=== PATIENT | male | born 1990 | race Caucasian/White ===

== ENCOUNTER 2016-12-17 20:47 | Inpatient (IN) | payer OTHER ==
[~2016-12-17] VITALS: Ht 181.6 cm; Wt 92.5 kg
[~2016-12-17 20:47] MED LIST: MOTRIN 600 MG600 MG PO
--- NOTE | 2016-12-17 20:52 | NUR ---
PT BIBA FROM HOME AFTER WRAPPING A USB CABLE AROUND HIS NECK IN A SUICIDE ATTEMPT. PER EMS, PT REPORTED HAVING SI THOUGHTS IN THE PAST, BUT THAT THIS IS HIS FIRST ATTEMPT AT HARMING HIMSELF. PT DENIES USING ETOH OR DRUGS TODAY. PER EMS, PT'S GIRLFRIEND BROKE UP WITH HIM A FEW DAYS AGO BECAUSE SHE WAS SEEING SOMEONE ELSE. PT CALM AND COOPERATIVE SECURITY AT BEDSIDE FOR WANFING
--- NOTE | 2016-12-17 21:33 | NUR ---
PT HAS 1 BELONGINGS BAG LOCKED IN CLOSET AND 1 VALUABLES BAG LOCKED IN MED ROOM SAFE.
--- NOTE | 2016-12-17 21:54 | NUR ---
blood drawn and sent to lab. lav,sst
[2016-12-17 21:59] LABS: ABSOLUTE BASOPHIL COUNT 0.1 /CUMM (0.0-0.2); ABSOLUTE EOSINOPHIL COUNT 0.1 /CUMM (0.0-0.7); ABSOLUTE LYMPH COUNT 2.3 /CUMM (1.2-3.4); ABSOLUTE MONOCYTE COUNT 0.8 /CUMM (0.10-0.60); BASOPHIL % 0.5 % (0.0-2.0); EOSINOPHIL % 0.5 % (0-5); GRANULOCYTE % 73.8 % (42.2-75.2); HEMATOCRIT 46.1 % (42-52); MEAN CORPUSCULAR HGB 29.6 PG (27.0-31.0); MEAN CORPUSCULAR HGB CONC 33.7 G/DL (33.0-37.0); MEAN CORPUSCULAR VOLUME 87.9 FL (80.0-94.0); MEAN PLATELET VOLUME 7.9 FL (7.4-10.4); PLATELET COUNT 376 /CUMM (130-400); RBC DISTRIBUTION WIDTH 13.2 % (11.5-14.5); RED BLOOD CELL CT 5.25 /CUMM (4.70-6.10); WHITE BLOOD CELL COUNT 12.2 /CUMM (4.8-10.8)
--- NOTE | 2016-12-17 22:16 | ED PSYCHIATRIC COMPLAINT ---
See Addendum History of Present Illness General Chief Complaint: Psychiatric Related Complaint Stated Complaint: BIBA SI ATTEMPT Source: patient Exam Limitations: no limitations Vital Signs & Intake/Output Vital Signs & Intake/Output Vital Signs Date Time Temp Pulse Resp B/P Pulse O2 O2 Flow FiO2 Ox Delivery Rate 12/18 1015 97.8 94 20 117/78 98 Room Air 12/18 0601 96.9 78 16 119/65 98 Room Air 12/17 2221 Room Air 12/17 2104 97.0 102 16 136/80 97 Room Air Allergies Coded Allergies: NO KNOWN ALLERGIES (05/25/15) Reconcile Medications No Known Home Medications Triage Note: PT BIBA AFTER WRAPPING A USB CABLE AROUND HIS NECK. PER EMS, PT HAS HAD SI THOUGHTS IN THE PAST BUT THIS WAS HIS FIRST ATTEMPT TO HARM SELF. PT DENIES ETOH/DRUG TODAY Triage Nurses Notes Reviewed? yes Onset: Abrupt Duration: day(s): Timing: recent history HPI: 26-year-old male comes into the emergency room for further evaluation after attempting to himself in his house. Patient reports that this last week has been very difficult for him. He reports that his fianc broke up with and he has found out that she is going out a lot talking to another time. He lives with his grandparents. He says he has social support. He denies any drug use but admits to some intermittent alcohol use. He's had some thoughts of hurting himself in the past but has never done anything. He reports that he saw his fianc today and when he got home the house was pitch black and he had have the thought that he wanted to hurt himself. (LAUREL WETZEL) Past History Travel History Traveled to [place] past 21 day No Medical History Any Pertinent Medical History? 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 No (LAUREL WETZEL) Review of Systems Review of Systems Constitutional: Reports: no symptoms. EENTM: Reports: no symptoms. Respiratory: Reports: no symptoms. Cardiovascular: Reports: no symptoms. GI: Reports: no symptoms. Genitourinary: Reports: no symptoms. Musculoskeletal: Reports: no symptoms. Skin: Reports: no symptoms. Neurological/Psychological: Reports: see HPI. Hematologic/Endocrine: Reports: no symptoms. Immunologic/Allergic: Reports: no symptoms. All Other Systems: Reviewed and Negative (LAUREL WETZEL) Physical Exam Physical Exam General Appearance: well developed/nourished, mild distress Head: atraumatic Eyes: Bilateral: normal appearance, EOMI. Ears, Nose, Throat: normal ENT inspection, hearing grossly normal Neck: normal inspection Respiratory: normal breath sounds, no respiratory distress Cardiovascular: regular rate/rhythm Extremities: normal range of motion Neurological/Psychiatric: awake, agitated Behavoir/Eye Contact/Speech: cooperative Thoughts/Hallucinations: no apparent hallucination Skin: intact, normal color, warm/dry SAD PERSONS SAD PERSONS Response Value Male Sex? yes 1 Depression/Hopelessness? yes 2 Rational Thinking Loss? yes 2 Single//? yes 1 Organized/Serious Attempt yes 2 Social Support? has support 0 Total 8 SAD PERSONS Done? yes (LAUREL WETZEL) Progress Differential Diagnosis: dementia, drug intoxication, drug overdose, drug withdrawal, electrolyte abnormality, encephalitis, hypoglycemia, hypothyroidism, IC hem/mass/tumor, meningitis, depression, bipolar, anxiety, Plan of Care: Orders Procedure Date/time Status Regular Diet 12/18 B Active Continuous Observation Monitor 12/18 0954 Active URINE DRUG SCREEN FOR ER ONLY 12/18 07 Complete Continuous Observation Monitor 12/18 2103 Active ETHANOL 12/18 2103 Complete COMPREHENSIVE METABOLIC PANEL 12/18 2103 Complete CBC WITHOUT DIFFERENTIAL 12/18 2103 Complete ED CRISIS PSYCH CONSULT 12/18 2103 Active Laboratory Tests 12/18/16 1010: Urine Opiates Screen < 100.00, Methadone Screen < 40, Barbiturate Screen < 60, Ur Phencyclidine Scrn < 6.00, Amphetamines Screen < 100, U Benzodiazepines Scrn < 85, Urine Cocaine Screen < 50, Urine Cannabis Screen 63.10 H 12/17/168: Anion Gap 14, Estimated GFR > 60, BUN/Creatinine Ratio 10.0, Glucose 100 H, Calcium 10.3 H, Total Bilirubin 1.1, AST 45, ALT 40, Alkaline Phosphatase 81, Total Protein 8.3 H, Albumin 5.0, Globulin 3.3, Albumin/Globulin Ratio 1.5, CBC w Diff NO MAN DIFF REQ, RBC 5.25, MCV 87.9, MCH 29.6, RDW 13.2, MPV 7.9, Gran % 73.8, Lymphocytes % 18.7 L, Monocytes % 6.5, Eosinophils % 0.5, Basophils % 0.5 , Absolute Granulocytes 9.0 H, Absolute Lymphocytes 2.3, Absolute Monocytes 0.8 H, Absolute Eosinophils 0.1, Absolute Basophils 0.1, PUBS MCHC 33.7, Serum Alcohol < 10.0 12/17/16 2104: Methadone Screen Cancelled, Barbiturate Screen Cancelled, Ur Phencyclidine Scrn Cancelled, Amphetamines Screen Cancelled, U Benzodiazepines Scrn Cancelled, Urine Cocaine Screen Cancelled, Urine Cannabis Screen Cancelled Hand-Off Endorsed To: BILLY STINSON MD Endorsed Time: 0024 Pending: consult (crisis), labs (LAUREL WETZEL) Hand-Off Endorsed To: ANTONETTE GARCÍA DO Endorsed Time: 0700 Pending: consult, labs (BILLY STINSON MD) Departure Departure Disposition: STILL A PATIENT Condition: Stable Clinical Impression Primary Impression: Depression Referrals: PATIENT HAS NO PRIMARY CARE DR (PCP/Family) Departure Forms: Customer Survey General Discharge Information Prescriptions: Current Visit Scripts No Known Home Medications (LAUREL WETZEL) Psych Admission Note Psychiatric Admission: I have seen and evaluated ANA ROSA SINGH. I have also reviewed all the pertinent lab results and diagnostic results. ANA ROSA SINGH will be admitted to our inpatient Psychiatric unit for treatment and care. 12/18/16 11:11 am The patient had been signed out to me by Dr. Stinson at 7 AM. He is being admitted to Inpatient Psychiatry. (ANTONETTE GARCÍA DO)
--- NOTE | 2016-12-17 22:20 | NUR ---
MICHAEL HUNTLEY AT BEDSIDE
--- NOTE | 2016-12-17 22:41 | NUR ---
PT HAS BEEN ATTEMPTING TO REACH HIS GRANDPARENTS, WITH WHOM HE LIVES, AT [phone], [place] [address]. THIS IS THEIR CELL HUNBER AND APPEARS TO BE SHUT OFF AT THIS TIME.
--- NOTE | 2016-12-18 00:48 | NUR ---
PT AWARE A URINE SAMPLE IS NEEDED. SITTER REMAINS IN ATTENDANCE
--- NOTE | 2016-12-18 02:44 | NUR ---
PT SLEEPING. REGULAR RESPIRATIONS NOTED. SITTER REMAINS IN ATTENDANCE
--- NOTE | 2016-12-18 03:34 | NUR ---
PATIENT CONTINUES TO SLEEP AT THIS TIME W/ REGULAR RESPIRATIONS NOTED. SITTER REMAINS W/ PATIENT.
--- NOTE | 2016-12-18 04:47 | NUR ---
PATIENT CONTINUES TO SLEEP AT THIS TIME W/ REGULAR RESPIRATIONS NOTED, SITTER REMAINS W/ PATIENT. LIGHTS DIMMED.
--- NOTE | 2016-12-18 06:28 | NUR ---
AWOKE PATIENT TO OBTAIN VS, VSS. PATIENT CALM AND COOPERATIVE, AWAITING CRISIS EVAL THIS AM. PATIENT AWARE OF URINE SPECIMEN ORDER, REPORTS "STILL CAN'T GO." SITTER REMAINS W/ PATIENT.
--- NOTE | 2016-12-18 07:30 | NUR ---
PT SLEEPING ON BED. RR WNL.
--- NOTE | 2016-12-18 09:41 | NUR ---
Crisis eval pending UDS results
--- NOTE | 2016-12-18 10:10 | NUR ---
AWAKE/AMBULATED TO BATHROOM. URINE TRIO SENT. PT STATES HE HAS TO GET TO WORK BY 1600. AWARE WE NEED TO WAIT FOR UDS RESULTS AND THEN WILL BE SEEN BY CRISIS AND POC WILL BE MADE. Informed waiting has been performed.
--- NOTE | 2016-12-18 10:30 | NUR ---
PT GIVEN PHONE TO CALL GRANDMOTHER, PHONE NOT WORKING ON GRANDMOTHER'S END.
--- NOTE | 2016-12-18 11:00 | NUR ---
GRANDMOTHER AT BEDSIDE.
--- NOTE | 2016-12-18 12:15 | NUR ---
GRANDPARENT'S CONTINUE TO ASK ABOUT WAIT TIME FOR CRISIS EVAL. THEY WERE ADVISED SEVERAL TIMES THAT PT DID NOT GIVE A URINE UNTIL THIS AM, SO PT'S EVAL WITH CRISIS WAS DELAYED DUE TO NOT HAVING A UDS RESULT UNTIL TODAY. Informed waiting has been performed.
--- NOTE | 2016-12-18 13:47 | NUR ---
CRISIS SPEAKING WITH PT'S GRANDPARENT'S.
--- NOTE | 2016-12-18 14:11 | ED PSY CRISIS COLLATERAL NOTE ---
Collateral Note Collateral Note Family/Inform/Kathryn Contacts: Maternal grandparents, Marialuisa and Lux Dagn interviewed 12/18/16 @ 3638. Marialuisa's phone, , not working; she needs to go to the phone store today to repair. Lux's phone, is working. Please notify admitting. Patient's mother had severe depression, and could not care for her children. The patient and 3 siblings were raised by these henri'parents; the patient was 9 y.o. at the time. History of cutting at 12-13 y.o., and treated at [facility] for anxiety and PTSD, related to being taken from his mother. Marialuisa reports that the patient was on a lot of different medications, but she is unsure what they were. She reports that he is not currently on psychiatric medications. The patient's father is still involved in the children's lives. The mother is doing better, depression is being treated and she is pursuing a nursing career; the patient is in touch with her. The patient had been living with his fiancee until 1-2 weeks ago, when he returned to the g'parent's home. He has been depressed and anxious over the break-up with the filucilae, thought to be a few days ago. Yesterday, 12/17/16, the leydaparents were not at home, but believe that the filucilae came over to visit the patient, and they went out. The g'parents think they were arguing. When the g'parents came home, the patient told them that the filucilae had called the police. The police arrived and the patient was sent to ED by EMS. The patient has a new job he was to start today at 1600 at [employer] in the [employer] department. G'parents report that the patient has always had difficulty getting up in the morning, and had arranged high school classes to start later in the day. He usually sleeps during the day and is up at night. G'parents deny observing racing thoughts, or the patient stating that he did not need to sleep. Family history: One sister had been diagnosed with bipolar d/o. Mother has depression. TONY Victor
--- NOTE | 2016-12-18 14:52 | ED PSYCH CRISIS CONSULTATION ---
Crisis Consult Basic Assessment Date of Consult: 12/18/16 Responsible Person/Accompanied By: self Insurance Authorization: Insurance #1: Insurance name: [employer] Phone number: Policy number: [id number] Group number: Authorization number: ED Provider: Patient's ED Provider: LAUREL WETZEL Primary Care Physician: Patient's PCP: PATIENT HAS NO PRIMARY CARE DR PCP's Phone Number: Current Psychiatrist: none Chief Complaint: Psychiatric Related Complaint Patient's Quote: "I tried to hang myself but the cord broke" Present Illness: Pt is a 26yo male who was brought in by ambulance after his ex-fiance called 911 when pt sent her a video of him hanging himself. Pt admits that he did hang himself, but the cord broke. Pt reports that his fiance broke up with his for someone else. Pt reports that he has been feeing depressed as a result and came home to a dark home and no one was home and he felt more lonely and depressed, so he tried to hang himself. Pt lives with his grandparents. They were present with pt in the ED. much of pt's hx was gathered from his grandparents as pt was agitated and uncooperative because he wanted to be discharged. "i need to go to work. I need to be discharged so i can go stay with my friends." Explained to pt that if the cord did not break, then he would not even be here today to go to work or be with his friends. The following was gathered from Pt's grandparents by Emanuel Marquez APRN: "Maternal grandparents, Marialuisa and Lux Dang interviewed 12/18/16 @ 1477. Marialuisa's phone, , not working; she needs to go to the phone store today to repair. Lux's phone, is working. Please notify admitting. Patient's mother had severe depression, and could not care for her children. The patient and 3 siblings were raised by these g'parents; the patient was 9 y.o. at the time. History of cutting at 12-13 y.o., and treated at [facility] for anxiety and PTSD, related to being taken from his mother. Marialuisa reports that the patient was on a lot of different medications, but she is unsure what they were. She reports that he is not currently on psychiatric medications. The patient's father is still involved in the children's lives. The mother is doing better, depression is being treated and she is pursuing a nursing career; the patient is in touch with her. The patient had been living with his fiancee until 1-2 weeks ago, when he returned to the g'parent's home. He has been depressed and anxious over the break-up with the filucilae, thought to be a few days ago. Yesterday, 12/17/16, the henri'parents were not at home, but believe that the fiancee came over to visit the patient, and they went out. The g'parents think they were arguing. When the g'parents came home, the patient told them that the fiancee had called the police. The police arrived and the patient was sent to ED by EMS. The patient has a new job he was to start today at 1600 at [employer] in the [employer] department. G'parents report that the patient has always had difficulty getting up in the morning, and had arranged high school classes to start later in the day. He usually sleeps during the day and is up at night. G'parents deny observing racing thoughts, or the patient stating that he did not need to sleep. Family history: One sister had been diagnosed with bipolar d/o. Mother has depression. TONY Victor" Case reviewed with Dr. Hui of Psychiatry and pt will be [facility] to [facility]. It was explained to pt the difference in signing in voluntarily versus PEC and pt opted to sign in voluntarily so that he can put in a 3 day paper request to discharge. Pt refused to sign the pt guidelines and he refused to participate in answering questions for diagnostic assessment and social. "I will do as little as possible." Patient's Address: [address] [place] [address] Other Phone Number: Who Do You Live With? Other (see notes) (grandparents) Family/Informants Interviewed: grandparents Allergies - Coded Allergies: NO KNOWN ALLERGIES (05/25/15) Current Medications - No Known Home Medications Laboratory Results: Laboratory Tests 12/18/16 1010: Urine Opiates Screen < 100.00, Methadone Screen < 40, Barbiturate Screen < 60, Ur Phencyclidine Scrn < 6.00, Amphetamines Screen < 100, U Benzodiazepines Scrn < 85, Urine Cocaine Screen < 50, Urine Cannabis Screen 63.10 H 12/17/168: Anion Gap 14, Estimated GFR > 60, BUN/Creatinine Ratio 10.0, Glucose 100 H, Calcium 10.3 H, Total Bilirubin 1.1, AST 45, ALT 40, Alkaline Phosphatase 81, Total Protein 8.3 H, Albumin 5.0, Globulin 3.3, Albumin/Globulin Ratio 1.5, CBC w Diff NO MAN DIFF REQ, RBC 5.25, MCV 87.9, MCH 29.6, RDW 13.2, MPV 7.9, Gran % 73.8, Lymphocytes % 18.7 L, Monocytes % 6.5, Eosinophils % 0.5, Basophils % 0.5 , Absolute Granulocytes 9.0 H, Absolute Lymphocytes 2.3, Absolute Monocytes 0.8 H, Absolute Eosinophils 0.1, Absolute Basophils 0.1, PUBS MCHC 33.7, Serum Alcohol < 10.0 12/17/162103: Methadone Screen Cancelled, Barbiturate Screen Cancelled, Ur Phencyclidine Scrn Cancelled, Amphetamines Screen Cancelled, U Benzodiazepines Scrn Cancelled, Urine Cocaine Screen Cancelled, Urine Cannabis Screen Cancelled Past History Past Medical History Neurological: NONE EENT: NONE Cardiovascular: NONE Respiratory: NONE Gastrointestinal: NONE Hepatic: NONE Renal: NONE Musculoskeletal: NONE Psychiatric: NONE Endocrine: NONE Blood Disorders: NONE Cancer(s): NONE 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 Past Surgical History Surgical History: non-contributory Psychosocial History Strengths/Capabilities: supportive grandparents Physical Limitations (Interventions): none reported Psychiatric Treatment History Psych Treatment Psychiatric Treatment Yes Inpatient Treatment Yes Outpatient Treatment Yes [place] Reason for Treatment PTSD Dates of Treatment age 15-14 Response to Treatment unknown Diagnosis by History: PTSD per grandparents Substance Use/Abuse History Drug Use/Abuse Substances Used/Abused Yes Substance Used/Abused Marijuana First Use unknown Last Used unknown How much used/taken unknown How often unknown For how long unknown Route of use unknown Substance Abuse Treatment Substance Abuse Treatment Past Substance Abuse [place] No Inpatient Treatment No Outpatient Treatment No Current Mental Status Mental Status Orientation: Person, Place, Situation Affect: Anxious, Angry, Depressed Speech: Evasive, Loud Neuro-vegetative: unable to assess Appearance Appearance- Dress/Hygiene: fairly groomed Behaviors Thought Process: Irrational Thought Content: Entitled, Grandiose Memory: WNL Insight: Poor SI/HI Risk Assessment Past Suicidal Ideation/Attempts No Current Suicidal Ideation/Att Yes Past Homicidal Ideation/Att: No Current Homicidal Ideation/Attempts No Degree of Intent: Made Preparations, Plan, States Intent, made attempt by hanging Danger To: Self Gravely Disabled: Lack of Insight, Poor Impulse Control, Poor Judgment Risk Factors: age (under 24/over 65), access to lethal means, high anxiety/ distress, history of suicide atmpts, SA/MH hospitalized, substance abuse, poor impulse control, lack of outcome concern, male, limited support Lethality Ratin (most severe) PTSD Checklist PTSD Done? pt unable to participate ED Management Sitter: Yes Restraints: No DSM5/PS Stressors/Medical Prob Diagnosis' (DSM 5, Stressors, Medical): Unspecified Depression F41.9, PTSD F43.10 (per GP by hx), Cannabis use d/o f12.20, Cluster B personality disorder traits Current GAF: 25 Departure Disposition Psych Medical Clearance Date: 12/18/16 Medically Cleared at: 1430 Time Started: 1430 Time Ended: 153 Psychiatrist Consulted: Ez Pennington Date Disposition Established: 12/18/16 Time Disposition Established: 1529 Plan for Disposition - Modality: Inpatient Psychiatry Facility: [facility] Rationale for Disposition: safety and stabilization following a suicide attempt Type of IP Admission: Voluntary Referrals PATIENT HAS NO PRIMARY CARE DR (PCP/Family)
--- NOTE | 2016-12-18 15:00 | NUR ---
PLAN IS FOR ADMISSION TO [facility]. Informed waiting has been performed.
--- NOTE | 2016-12-18 16:00 | NUR ---
AWAITING ADMISSION PROCESS Informed waiting has been performed.
--- NOTE | 2016-12-18 16:18 | IP CRISIS DIAG ASSESS PSYCH ---
Diagnostic Assessment Basic Assessment Insurance Authorization: Insurance #1: Insurance name: SANTIAGO Cadena [employer] Phone number: Policy number: [id number] Group number: Authorization number: [id number] Primary Care Physician: Patient's PCP: PATIENT HAS NO PRIMARY CARE DR PCP's Phone Number: Patient's Quote: "I tried to hang myself but the cord broke" Present Illness: Pt is a 26yo male who was brought in by ambulance after his ex-fiance called 911 when pt sent her a video of him hanging himself. Pt admits that he did hang himself, but the cord broke. Pt reports that his fiance broke up with his for someone else. Pt reports that he has been feeing depressed as a result and came home to a dark home and no one was home and he felt more lonely and depressed, so he tried to hang himself. Pt lives with his grandparents. They were present with pt in the ED. much of pt's hx was gathered from his grandparents as pt was agitated and uncooperative because he wanted to be discharged. "i need to go to work. I need to be discharged so i can go stay with my friends." Explained to pt that if the cord did not break, then he would not even be here today to go to work or be with his friends. The following was gathered from Pt's grandparents by Emanuel Marquez APRN: "Maternal grandparents, Marialuisa and Lux Dang interviewed 12/18/16 @ 7352. Marialuisa's phone, , not working; she needs to go to the phone store today to repair. Lux's phone, is working. Please notify admitting. Patient's mother had severe depression, and could not care for her children. The patient and 3 siblings were raised by these g'parents; the patient was 9 y.o. at the time. History of cutting at 12-15 y.o., and treated at [facility] for anxiety and PTSD, related to being taken from his mother. Marialuisa reports that the patient was on a lot of different medications, but she is unsure what they were. She reports that he is not currently on psychiatric medications. The patient's father is still involved in the children's lives. The mother is doing better, depression is being treated and she is pursuing a nursing career; the patient is in touch with her. The patient had been living with his fiancee until 1-2 weeks ago, when he returned to the g'parent's home. He has been depressed and anxious over the break-up with the filucilae, thought to be a few days ago. Yesterday, 12/17/16, the henri'parents were not at home, but believe that the fiancee came over to visit the patient, and they went out. The g'parents think they were arguing. When the g'parents came home, the patient told them that the fiancee had called the police. The police arrived and the patient was sent to ED by EMS. The patient has a new job he was to start today at 1600 at [employer] in the [employer] department. Henri'parents report that the patient has always had difficulty getting up in the morning, and had arranged high school classes to start later in the day. He usually sleeps during the day and is up at night. G'parents deny observing racing thoughts, or the patient stating that he did not need to sleep. Family history: One sister had been diagnosed with bipolar d/o. Mother has depression. TONY Victor" Case reviewed with Dr. Hui of Psychiatry and pt will be admitted to [facility]. It was explained to pt the difference in signing in voluntarily versus PEC and pt opted to sign in voluntarily so that he can put in a 3 day paper request to discharge. Pt refused to sign the pt guidelines and he refused to participate in answering questions for diagnostic assessment and social. "I will do as little as possible." Patient's Address: [address] [place] [address] Other Phone Number: Who Do You Live With? Other (see notes) (grandparents) Primary Language? Bulgarian Family/Informants Interviewed: grandparents Allergies - Coded Allergies: NO KNOWN ALLERGIES (05/25/15) Current Medications - No Known Home Medications Past History Abuse/Trauma History Trauma History/Current Trauma: unable to assess Psychosocial History Strengths/Capabilities: supportive grandparents Physical Limitations (Interventions): none reported Psychiatric Treatment History Psych Treatment Psychiatric Treatment Yes Inpatient Treatment Yes Outpatient Treatment Yes Location of Treatment [facility] Reason for Treatment PTSD Dates of Treatment age [age] Response to Treatment unknown Diagnosis by History: PTSD per grandparents Risk Factors: age (under 24/over 65), access to lethal means, high anxiety/ distress, history of suicide atmpts, SA/MH hospitalized, substance abuse, poor impulse control, lack of outcome concern, male, limited support Substance Use/Abuse History Drug Use/Abuse minimum 12mo Hx Substances Used/Abused Yes Substance Used/Abused Marijuana First Use unknown Last Used unknown How much used/taken unknown How often unknown For how long unknown Route of use unknown Substance Abuse Treatment Substance Abuse Treatment Past Substance Abuse [place] No Inpatient Treatment No Outpatient Treatment No Current Mental Status Mental Status Orientation: Person, Place, Situation Affect: Anxious, Angry, Depressed Speech: Evasive, Loud Neuro-vegetative: unable to assess Appearance Appearance- Dress/Hygiene: fairly groomed Behaviors Thought Process: Irrational Thought Content: Entitled, Grandiose Memory: WNL Insight: Poor SI/HI Risk Assessment - Minimum 6mo History- Past Suicidal Ideation/Attempts No Current Suicidal Ideation/Att Yes Past Homicidal Ideation/Att: No Current Homicidal Ideation/Attempts No Degree of Intent: Made Preparations, Plan, States Intent, made attempt by hanging Danger To: Self Gravely Disabled: Lack of Insight, Poor Impulse Control, Poor Judgment Risk Factors: age (under 24/over 65), access to lethal means, high anxiety/ distress, history of suicide atmpts, SA/MH hospitalized, substance abuse, poor impulse control, lack of outcome concern, male, limited support Lethality Ratin (most severe) Needs/Init TX Plan/Goals: safety and stabilization of sx, individual group and family therapy, med eval AUDIT-C Questionnaire: AUDIT-C Questionnaire: Response Value ETOH use in the past year Never 0 # drinks typical/day Doesn't Drink 0 6 or > drinks per occasion Never 0 Total 0 DSM5/PS Stressors/Medical Prob Diagnosis' (DSM 5, Stressors, Medical): Unspecified Depression F41.9, PTSD F43.10 (per GP by hx), Cannabis use d/o f12.20, Cluster B personality disorder traits Current GAF: 25
--- NOTE | 2016-12-18 16:18 | SOCIAL WORKER PROG NOTE PSYCH ---
Social Work Progress Note Progress Note Pt refused to perticipate in his social history.
--- NOTE | 2016-12-18 18:00 | NUR ---
AWAITING ADIMISSION PROCESS. Informed waiting has been performed.
--- NOTE | 2016-12-18 18:46 | NUR ---
REPORT GIVEN TO [facility]
--- NOTE | 2016-12-18 22:08 | NUR ---
Pt is out in the community pacing in the hallway after admission. Pt is compliant and cooperative with the staff, vital signs are stable appetite is good. Will continue to monitor the pt overnight.
--- NOTE | 2016-12-19 00:04 | NUR ---
PT ADMITTED TO [facility] FOR DEPRESSION WITH SI. PT REPORTED HE ATTEMPTED TO HANG HIMSELF AFTER HIS GIRFRIEND BROKE UP WITH HIM. HOWEVER, HE THINKS HE MAY HAVE REMOVED THE LIGATURE OR IT MAY HAVE BROKEN BEFORE HE ACTUALLY HARMED HIMSELF. PT DENIED SI/THOUGHTS OF SELF HARM DURING INTERVIEW. HE ALSO AGREED TO TELL STAFF IF THOUGHTS RETURN. PT REPORTED THAT EX GIRLFRIEND "HAS BEEN A BIG SUPPORT THROUGH ALL THIS AND SHE SAID SHE'LL TAKE ME TO MY THERAPY APPOINTMENTS WHEN I LEAVE HERE." PT REPORTED DEPRESSION "2" OUT OF 10 AND ANXIETY "4" OUT OF 10 WITH 10 BEING THE WORST. HE DENIED HI, PARANOID THOUGHTS, AND ALL HALLUCINATIONS. HE PRESENTED HIS THOUGHTS CLEARLY AND LOGICALLY. AFFECT CONSTRICTED. NO SOMATIC C/O. VITAL SIGNS STABLE. PT REPORTED HE HAS HISTORY OF DEPRESSION WITH SI AND ANXIETY WELL A DX OF BIPOLAR RECEIVED "IN MIDDLE SCHOOL OR EARLY HIGH SCHOOL." PT DENIED HISTORY OF SUICIDE ATTEMPT BEFORE THIS INCIDENT. HOWEVER, HE HAS HISTORY OF SELF HARM CUTTING BEHAVIOR.
--- NOTE | 2016-12-19 05:59 | NUR ---
SLEPT WELL OVERNIGHT , NO COMPLAINTS OFFERED
[2016-12-19 08:22] VITALS: BP 122/50
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
[2016-12-19 12:29] VITALS: BP 102/58
--- NOTE | 2016-12-19 12:30 | CPS MD/APRN INITIAL ASSE PSYCH ---
Psychiatric Admission Coffee Sommelier's Note Reviewed: Yes Patient Seen and Examined: Yes Identifying Information: Patient is a 26-year-old male. Chief Complaint: "I tried to hang myself but the cord broke" Reaction to Hospitalization: Calm and cooperative. History of Present Illness Onset of Illness: Pt reports that his fiance broke up with him for someone else. Pt reports that he has been feeling depressed as a result. He came home to a dark home, no one else was home, which made him feel lonely and depressed. He then tried to hang himself. Circumstances Leading to Admission: Brought in by ambulance after his ex-fiance called 911 when pt sent her a video of him trying to hang himself. Problem(s) Justifying Need for Admission: Suicidal attempt Past Psychiatric History Past Diagnosis(es)- if any: Anxiety, PTSD, history of cutting. Past Precipitating Factors- if any: Recent breakup with his fiance. - Include inpatient and outpatient treatment Treatment History: As per Crisis: "History of cutting at 12-15 y.o., and treated at [facility] for anxiety and PTSD, related to being taken from his mother. Grandmother reports that the patient was on a lot of different medications, but she is unsure what they were. She reports that he is not currently on psychiatric medications." History of Suicide Attempts or Gestures Denies prior episodes. Patient however reports intermittent suicidal ideation, at least since age 17. Substance Abuse History: Marijuana Allergies: Coded Allergies: NO KNOWN ALLERGIES (12/18/16) Home Med List: No home medications - Include any medical condition(s) that may - impact the patient's recovery/remission Past History Medical History Neurological: NONE EENT: NONE Cardiovascular: BENIGN HEART MURMUR Respiratory: NONE Gastrointestinal: NONE Hepatic: NONE Renal: NONE Musculoskeletal: NONE Psychiatric: anxiety, depression, insomnia, substance abuse Endocrine: NONE Blood Disorders: NONE Cancer(s): NONE IT SYSTEMS ANALYST/Reproductive: NONE History of MRSA: No History of VRE: No History of CDIFF: No Isolation History: Standard Surgical History Surgical History: non-contributory Psychiatric Family/Social Hx Family History Psychiatric Illness: Family history: One sister had been diagnosed with bipolar d/o. Mother has depression. Substance Use: Mother is in recovery. Suicides: Maternal uncle attempted suicide when he was younger. Social History Living Situation: Patient lives with his grandparents and 2 of his 3 sisters. Significant Relationships (family/friends): Grandmother, grandfather, and 3 sisters. Patient visits his mother from time to time. Education: High school graduate. Vocation/Occupation: He works in the [employer]. Legal: Denies Healthly Behaviors Screening Tobacco Screening Tobacco Use from ED Docu: Current Daily Use Daily Tobacco Use Amount/Type: =< 4 Cigarettes daily - If tobacco counseling indicated - the following topics are required. - #1 Recognizing dangerous situations. - #2 Coping Skills. - #3 Basic information about quitting. Status of Tobacco Cessation Counseling: #1, #2 AND #3 Completed Cessation Med Status: Nicotine Gum Ordered Alcohol Screening - ETOH screen POS if BAL >=80 or Audit-C>= M4/F3 Audit-C Score from Diag Assess: 0 Blood Alcohol Level: Laboratory Tests 12/18 2147 Toxicology Serum Alcohol (<10 MG/DL) < 10.0 Alcohol Use Screening Results: Neg per Audit C &/or BAL - If ETOH counseling indicated - the following topics are required. - #1 Express concern about the patient's - drinking at unhealthy levels, include informing - of national norms for moderate drinking: - men <= 14 drinks/week, max 4 drinks/occasion - women <= 7 drinks/week, max 3 drinks/occasion - #2 Providing feedback, including linking alcohol to - negative physical effects (liver injury, hypertension) - negative emotional effects (relationship problems and - depression) - negative occupational consequences (reduced work - performance) - #3 Advising the patient to abstain from alcohol or - to drink below national norms for moderate drinking - (as listed above). Status of ETOH Use Counseling: N/A B/C NO ETOH Use Metabolic Screening - Screen if on a Neuroleptic Medication - Metabolic screening should include: - Blood Pressure, BMI, Glucose or Hgb A1c, & a - Lipid profile from within the past 365 days. Metabolic Screening ([x]) Not Applicable, patient not on a neuroleptic. OR () Patient on a neuroleptic(s) . Enter below results for Glucose or Hemoglobin A1C, and lipid panel if obtained during the last 365 days. BMI: 28.000 Blood Pressure: 122/50 Laboratory Results (If applicable): labs ordered and pending. Exam and Plan Mental Status Examination Ambulation Status: Patient ambulates independently with steady gait. Appearance: Well dressed and groomed. Attitude towards examiner: Calm and cooperative, friendly. Psychomotor activity: Within normal limits Behavior: Calm and cooperative Quality of speech: Speech is well articulated, goal-directed, average in rate, volume and tone. Affect: Congruent Mood: Euthymic Suicidal Ideation: Denies Homicidal Ideation: Denies Hallucinations: Denies Paranoid/Delusional Material: Denies Difficulties with thought organization: No thought organization difficulties noted Insight: Fair Judgment: Poor Orientation: Alert and oriented to person, place, time and situation. Cognition: Within normal limits Memory Function: Within normal limits Estimate of intellectual functioning: Average Assets/Strengths Patient Identified Assets/Strengths: "I'm friendly. I care about people's feelings." Impression/Plan Impression and Plan: This is a 26-year-old pleasant and friendly young man. He admits to trying to kill himself by hanging, and sending his ex-fiance of video of the episode. He states this was an impulsive act, which he does not fully understand himself. States that as a 15-year-old he had been diagnosed with bipolar disorder, but has not taken medications in many years, and does not remember what medications he was prescribed at that time. States that he does not experience mood lability, and does not have manic episodes. Does say that he is at times talkative. Today reports that he feels well. Looking forward to family visiting today. Denies depression, and reports a very low level of anxiety. He said he sleeps well at night, without nightmares. For the last 2 weeks or so he has not had a good appetite. Plan: Continue Zoloft which was started on admission for depression and anxiety. - Include all active medical diagnosis that require tx DSM 5 Diagnosis(es): Unspecified Depression F41.9, PTSD F43.10 (per GP by hx). Rule out bipolar disorder. - Initial Tx Plan for Active Psych & Medical Conditions Treatment Plan: PLAN: The patient will be monitored on the unit for safety, depression, suicidal ideation, and mood lability. Additional information is needed from collaterals, including his grandparents and sisters. Anticipate once clinically stable, that the patient will be discharged to home and family and be referred to [facility]. - Factors that would help patient function - in a less restrictive setting. Factors: Resolution of suicidal ideation.
--- NOTE | 2016-12-19 13:20 | History & Physical ---
General Information and HPI MD Statement: I have seen and personally examined ANA ROSA SINGH and documented this H&P. The patient is a 26 year old M who presented with a patient stated chief complaint of "I tried to hang myself the cord broke". Source of Information: patient Exam Limitations: no limitations History of Present Illness: 26-year-old white male was brought in by ambulance after wrapping USB cable and his neck. EMS the seems to be the first attempt to harm himself didn't have any alcohol recently his ex-girlfriend called 911, he just broke up with her. Patient will be admitted for evaluation and treatment Allergies/Medications Allergies: Coded Allergies: NO KNOWN ALLERGIES (12/18/16) Home Med list No Known Home Medications Compliance With Home Meds: UNKNOWN Past History Travel History Traveled to [place] past 21 day No Medical History Neurological: NONE EENT: NONE Cardiovascular: BENIGN HEART MURMUR Respiratory: NONE Gastrointestinal: NONE Hepatic: NONE Renal: NONE Musculoskeletal: NONE Psychiatric: anxiety, depression, insomnia, substance abuse Endocrine: NONE Blood Disorders: NONE Cancer(s): NONE PLATE MILL MILL HAND/Reproductive: NONE History of MRSA: No History of VRE: No History of CDIFF: No Isolation History: Standard Surgical History Surgical History: non-contributory Past Family/Social History Psychosocial History Where do you live? Home ETOH Use: denies use Review of Systems Review of Systems Constitutional: Reports: see HPI. Exam & Diagnostic Data Last 24 Hrs of Vital Signs/I&O Vital Signs Date Time Temp Pulse Resp B/P Pulse O2 O2 Flow FiO2 Ox Delivery Rate 12/19 1229 98 102/58 12/19 0822 96.8 87 122/50 12/18 1850 97.9 91 20 119/73 98 Room Air 12/18 1523 97.8 103 20 134/83 98 Room Air Intake & Output 12/19 1600 12/19 0800 12/19 0000 Intake Total Output Total Balance Patient 204 lb Weight Physical Exam General Appearance Alert, Oriented X3, Cooperative, No Acute Distress Skin No Rashes, No Breakdown, No Significant Lesion HEENT Atraumatic, PERRLA, EOMI, Mucous Membr. moist/pink Neck Supple, No JVD, No thryomegaly, +2 Carotid Pulse wo Bruit Lymphatic Axillary nl, Cervical nl Cardiovascular Regular Rate, Normal S1, Normal S2, No Murmurs Lungs Clear to Auscultation, Normal Air Movement Abdomen Normal Bowel Sounds, Soft, No Tenderness, No Hepatospenomegaly, No Masses Neurological Exam Findings: Normal Gait, Normal Speech, Strength at 5/5 X4 Ext, Normal Tone, Sensation Intact, Cranial Nerves 3-12 NL, Reflexes 2+ Cranial Nerves II through XII: Intact Extremities No Cyanosis, No Edema, Normal Pulses Last 24 Hrs of Labs/Quan: Laboratory Tests 12/18/16 1010: Urine Opiates Screen < 100.00, Methadone Screen < 40, Barbiturate Screen < 60, Ur Phencyclidine Scrn < 6.00, Amphetamines Screen < 100, U Benzodiazepines Scrn < 85, Urine Cocaine Screen < 50, Urine Cannabis Screen 63.10 H 12/17/16 2148: Anion Gap 14, Estimated GFR > 60, BUN/Creatinine Ratio 10.0, Glucose 100 H, Calcium 10.3 H, Total Bilirubin 1.1, AST 45, ALT 40, Alkaline Phosphatase 81, Total Protein 8.3 H, Albumin 5.0, Globulin 3.3, Albumin/Globulin Ratio 1.5, CBC w Diff NO MAN DIFF REQ, RBC 5.25, MCV 87.9, MCH 29.6, RDW 13.2, MPV 7.9, Gran % 73.8, Lymphocytes % 18.7 L, Monocytes % 6.5, Eosinophils % 0.5, Basophils % 0.5 , Absolute Granulocytes 9.0 H, Absolute Lymphocytes 2.3, Absolute Monocytes 0.8 H, Absolute Eosinophils 0.1, Absolute Basophils 0.1, PUBS MCHC 33.7, Serum Alcohol < 10.0 12/17/164: Methadone Screen Cancelled, Barbiturate Screen Cancelled, Ur Phencyclidine Scrn Cancelled, Amphetamines Screen Cancelled, U Benzodiazepines Scrn Cancelled, Urine Cocaine Screen Cancelled, Urine Cannabis Screen Cancelled Diagnostic Data ITS Data Unobtainable at this time Assessment/Plan As Ranked By This Provider Problem List: 1. Depression Miscellaneous Miscellaneous Documentation Attending Case Discussed With: TRUNG GOMEZ MD Primary Care Physician: PATIENT HAS NO PRIMARY CARE DR Patient sees these Specialists Psychiatry Level of Patient Care: [facility] Consults Needed: Consulting Specialty: Psychiatry Consulting Physician: Juan Figueroa MD Reason for Consult: depression and suicidal attempt
--- NOTE | 2016-12-19 13:51 | SOCIAL WORKER PROG NOTE PSYCH ---
Social Work Progress Note Progress Note Pt was cooperative, anxious and wondering about being here and what the process is. Pt was forthcoming and insightful. He spoke about his childhood, and this recent break up. Pt "feels old" but is only 26, and has been though a lot. HIs is the oldest of 4 siblings and his parents have been in and out of his life due to drugs and shelter time. Pt reports he cant let go of relationship with ex.
--- NOTE | 2016-12-19 13:58 | NUR ---
PT REFUSED ALL GROUPS TODAY AND ISOLATED IN HIS ROOM WHEN HE WAS OOB HIS INTERACTIONS WITH STAFF AND PEERS WAS APPROPRIATE. PT DID C/O NAUSEA..NO VOMITING. HE DENIED ANY SUICIDAL THOUGHTS WHEN ASKED
[2016-12-19 16:01] VITALS: BP 115/67
[2016-12-19 20:02] VITALS: BP 122/71
--- NOTE | 2016-12-19 21:28 | NUR ---
PT IS CALM, COOPERATIVE WITH STAFF AND PEERS, AND COMPLAINT WITH UNIT RULES. PT IS OFTEN IN [place]IE[place], AND IS INTERACTING WELL WITH OTHERS. MOOD IS STABLE, AFFECT IS EUTHYMIC, COMMUNICATION IS ORGANIZED AND APPEARS NORMAL IN ALL RESPECTS, AND APPETITE IS NORMAL. PT DENIES SI AT THIS TIME.
--- NOTE | 2016-12-20 06:10 | NUR ---
PT APPEARED TO SLEEP.
--- NOTE | 2016-12-20 11:19 | SOCIAL WORKER PROG NOTE PSYCH ---
Social Work Progress Note Progress Note Tony presented as calm, but tired. Stated he slept good, but got up early for bloodwork and went back to bed. He was in group at 10:30 when I went to meet with him. He talked about the incident that led to his hospitalization stating he came home to a quiet, empty house, it was a long busy day and he impulsively felt the urge to hang himself. While in the process he had thoughts about not wanting to do it and so texted his ex-girlfriend Tiffani, who ultimately called 911. He seems to have little insight into what led up to this incident, other than saying that he was feeling stressed for a while and he tends to bottle things up. He has had fleeting thoughts of SI in the past, but no plan. Has a mild hx of self harm behavior, showed me a scar from a cut on his arm from in middle school. His girlfriend broke up with him a week- week 1/2 ago, but he remains in contact with her and states she is his "rock". He feels most comfortable taking to her. He is afraid of losing her. They were engaged and had been together for 1- half years. At that same time he and his grandparents (primary caregivers) left [place] and moved to [place]. He grew up in [place], so he feels that a peice of him was left behind. Since his move to [place] he states he has been bored. He has some friends in [place], but doesn't feel they are a good support. He does work at [employer] 20-30 hours week. He has informed them of his hospitalization. He is hoping to get back to work soon in fear of losing his job. He asked abouth his options to leave soon. I informed him of the paper to terminate voluntary status and that we have 72 business hours to decide whether to let him discharge or not. He decided that he did want to sign this paper. He is open to having a family meeting with his grandparents and his sisters tomorrow or Sunday. Called his grandmother and she will be here tomorrow with 2 of his sisters for 1pm.
--- NOTE | 2016-12-20 11:52 | SOCIAL WORKER TX PLAN PSYCH ---
Treatment Plan - Please Document: - Evidence that there is ongoing collaboration between - the patient and the interdisciplinary team, - including the patient's active participation and - responsibility for engaging in the treatment regimen, - and that the treatment plan is individualized and - relevant to the patient's conditions. - Treatment plan should reflect documentation indicating - that all active therapeutic efforts are included. Strengths/Capabilities: supportive grandparents Physical Limitations (Interventions): none reported DSM5/PS Stressors/Medical Prob Diagnosis' (DSM 5, Stressors, Medical): Unspecified Depression F41.9, PTSD F43.10 (per GP by hx), Cannabis use d/o f12.20, Cluster B personality disorder traits Current GAF: 25 Treatment Team - Responsibilities of members of the treatment team include: - Medication Management- MD or LIDAR SCIENTIST - Medication Administration and Monitoring- Nurse - Group Therapy- Occupational Therapist - 1:1 Therapy,Disch Planning,family involvement-Retread Technician
[2016-12-20 12:22] VITALS: BP 116/73
--- NOTE | 2016-12-20 13:32 | NUR ---
PT ISOLATED MUCH OF THE DAY. HE IS ENC TO ATTEND GROUPS.HE IS COMPLIANT WITH HIS MEDS AND WHEN ASKED PT DENIED ANY THOUGHTS OF SUICIDE OR SELF HARM
[2016-12-20 15:57] VITALS: BP 133/64
--- NOTE | 2016-12-20 18:45 | CP SOUTH PROGRESS NOTE PSYCH ---
Psych (Inpt) Progress Note Progress Note Progress Note: I discussed this patient's progress to date, current mental status, treatment process in the context of the treatment plan, and discharge planning with staff/ team in the daily morning inpatient team meeting. I also met with the patient myself in individual session. SUBJECTIVE: "I woke up pretty happy. I haven't felt any sadness." OBJECTIVE: Current Medications Sig/Amina Start time Last Medication Dose Route Stop Time Status Admin Acetaminophen 650 MG Q4P PRN 12/18 1845 AC PO Al Hydroxide/Mg 30 ML Q4-6 PRN PRN 12/18 184 AC Hydroxide PO Aripiprazole 5 MG 0800 12/20 1130 AC 12/20 PO 1216 Haloperidol 5 MG Q8P PRN 12/18 184 AC PO Lorazepam 1 MG Q6-PRN PRN 12/18 1830 AC 12/19 PO 2139 Magnesium Hydroxide 30 ML AT BEDTIME PRN 12/18 184 AC PO Nicotine 2 MG Q2 HRS NEEDED PRN 12/18 184 AC PO Sertraline HCl 50 MG DAILY 12/19 1000 AC 12/20 PO 1116 Laboratory Tests 12/20 0618 Chemistry Triglycerides (<150 mg/dL) 63 Cholesterol (< 200 MG/DL) 116 LDL Cholesterol, Calc (65 - 129 mg/dL) 67 HDL Cholesterol (40 - 60 mg/dL) 37 L Cholesterol/HDL Ratio (0.00 - 4.88 %) 3 Vital Signs Date Time Temp Pulse Resp B/P Pulse O2 O2 Flow FiO2 Ox Delivery Rate 12/20 1557 91 133/64 12/20 1222 76 116/73 12/19 2001 98.8 87 122/71 ASSESSMENT: This morning the patient presented as calm, cooperative, pleasant, in a euthymic mood. Offered no complaints. He appears to exhibit poor insight into his suicidal attempt, and to what may have motivated him to do such a thing. Later in the afternoon he returned to my office to request to be discharged today, stating that he had "things to do." We discussed the seriousness of his suicidal attempt, and suicidal ideation. We talked about future plans. Patient then verbalized willingness to remain in treatment here in the hospital. Patient has a three-day paper in place. Depression:0/10; Anxiety:1/10 (with 10 the worst.) Denies suicidal ideation, homicidal ideation, auditory hallucinations, visual hallucinations, paranoid ideation. Patient states and also believes that he will not kill himself. States that he slept well last night. Reports good appetite. Speech is well articulated, goal-directed, average in rate, volume and tone. Alert and oriented 3. Calm and cooperative. The patient understands the risks/benefits/side effects of the medication and is agreeable to continue taking them. PLAN: Add Abilify to augment the antidepressant, and for mood stability. I discussed with the patient the black box warning on Zoloft for adolescents and young adults. Patient verbalized understanding that Zoloft could cause suicidal ideation in some cases, and verbalized that should he have return of suicidal thoughts, he would immediately seek help, including from his sisters and grandparents. Continue with other current management as patient is improving. Continue to provide support and encouragement.
[2016-12-20 19:39] VITALS: BP 120/65
--- NOTE | 2016-12-20 20:46 | NUR ---
PT IS VISIBLE ON UNIT, VISITING WITH SISTERS AND GRANDPARENTS. NOT MUCH INTERACTION WITH OTHERS, MOSTLY RUMINATES AROUND UNIT TO PASS TIME. PLEASANT AND COOPERATIVE. NO COMPLAINTS OR SI REPORTED. PT HAS A STABLE MOOD AND FULL RANGE AFFECT.
--- NOTE | 2016-12-21 06:22 | NUR ---
PT APPEARED TO SLEEP.
[2016-12-21 07:50] VITALS: BP 109/56
[2016-12-21 12:07] VITALS: BP 118/58
--- NOTE | 2016-12-21 12:34 | CP SOUTH PROGRESS NOTE PSYCH ---
Psych (Inpt) Progress Note Progress Note Progress Note: I discussed this patient's progress to date, current mental status, treatment process in the context of the treatment plan, and discharge planning with staff/ team in the daily morning inpatient team meeting. I also met with the patient myself in individual session. SUBJECTIVE: "I'm just tired." OBJECTIVE: Current Medications Sig/Amina Start time Last Medication Dose Route Stop Time Status Admin Acetaminophen 650 MG Q4P PRN 12/18 1845 AC PO Al Hydroxide/Mg 30 ML Q4-6 PRN PRN 12/18 1845 AC Hydroxide PO Aripiprazole 5 MG 0800 12/20 1130 AC 12/21 PO 0757 Haloperidol 5 MG Q8P PRN 12/18 1845 AC PO Lorazepam 1 MG Q6-PRN PRN 12/18 1830 AC 12/19 PO 2139 Magnesium Hydroxide 30 ML AT BEDTIME PRN 12/18 1845 AC PO Nicotine 2 MG Q2 HRS NEEDED PRN 12/18 184 AC PO Sertraline HCl 50 MG DAILY 12/19 1000 AC 12/21 PO 0757 Vital Signs Date Time Temp Pulse Resp B/P Pulse O2 O2 Flow FiO2 Ox Delivery Rate 12/21 1207 86 118/58 / 0750 97.5 89 109/56 04/05 1939 97.7 93 120/65 04/05 1557 91 133/64 ASSESSMENT: I met the patient twice today, once in individual session, and then a second time in a family meeting along with his grandparents and sisters, and aids social worker Kim. Patient was found today at approximately 11:30 AM, asleep in bed. Easily aroused, ambulated with steady gait to my office. Alert and oriented 3. Patient was strongly encouraged to stay away from his bedroom, and participate in group and community activities. We discussed the disturbing nature of the patient's suicidal attempt, and I emphasized the importance of engaging in therapy. Patient verbalized understanding. I also met the patient in a family meeting along with aids social worker Kim, the patient, grandfather, grandmother, and 2 sisters. Family expressed support for the patient. States that although the patient had been sad after the breakup with his girlfriend, he had never before exhibited self harming behavior. Family encouraged the patient to engage in therapy, both in the hospital, and after discharge. Family members have been consistent visitors during visiting hours. Depression:0/10; Anxiety:0/10 (with 10 the worst.) Denies suicidal ideation, homicidal ideation, auditory hallucinations, visual hallucinations, paranoid ideation. Patient states and also believes that he will not kill himself. Speech is well articulated, goal-directed, average in rate, volume and tone. Calm and cooperative. Alert and oriented 3. Logical. Poor insight. The patient understands the risks/benefits/side effects of the medication and is agreeable to continue taking them. PLAN: Zoloft and Abilify times changed to bedtime, as the patient complains that medications have been making him tired during the day. Anticipate discharge at end of three-day paper on Sunday. Continue with current management as patient is improving. Continue to provide support and encouragement.
--- NOTE | 2016-12-21 14:07 | NUR ---
PT STATED HE SLEPT POORLY BECAUSE HE WAS HOT AND COLD. HE ISOLATED IN HIS ROOM AND ONLY ATTENDED ONE GROUP. PT DID STATE HE FELT THE MEDS WERE MAKING HIM TIRED. WHEN ASKED HE DENIED ANY THOUGHTS OF SUICIDE OR SELF HARM
[2016-12-21 15:35] VITALS: BP 146/73
--- NOTE | 2016-12-21 16:36 | SOCIAL WORKER PROG NOTE PSYCH ---
Social Work Progress Note Progress Note Family meeting held today with Grandparents and 2 sisters Karely and Lisa. Family appeared supportive and concerned over the break up with his girlfriend and how he is dealing with the loss. He seems to feel he will be ok. Family did not express any safety concerns prior to this event and didn't really see any red flags, although inidicated that it was nice to see him smiling because he hadn't been smiling much. Family is supportive in him going to [facility] for aftercare treatment and offered to help with transportation. Talked about the importance of engaging in therapy here and not staying in his room sleeping. Tony's biggest complaint has been about how tired he is. He has been difficult to get out of bed. Tony did play a game with another peer today and has made an attempt to stay out of his bed. Talked about discharge for Sunday. Intake has been scheduled for Sunday at 12:45 at [facility].
[2016-12-21 19:39] VITALS: BP 134/76
--- NOTE | 2016-12-21 22:02 | NUR ---
PT IS VISIBLE ON UNIT, SOCIAL WITH PEERS AND WATCHING TV IN KITCHEN. ATTENDED WRAP UP MEETING. COOPERATIVE AND COMPLIANT. NO COMPLAINTS OR SI REPORTED. PT HAS A STABLE MOOD AND FULL RANGE AFFECT.
[2016-12-22 07:58] VITALS: BP 107/66
[2016-12-22 12:09] VITALS: BP 126/63
--- NOTE | 2016-12-22 13:16 | NUR ---
PT IS COMPLIANT AND COOPERATIVE. MOOD IS STABLE WITH A FLAT AFFECT. PT DENIES SI AT THIS TIME, C/O HEADACHE. PT HAS BEEN MOSTLY WITHDRAWN AND ISOLATIVE IN BED. PT PRESENT IN COMMUNITY MORE DURING AFTERNOON HOURS- INTERACTING WITH PEERS. PT HAS ATTENDED A COUPLE GROUPS. VITALS ARE STABLE, APPETITE IS GOOD.
--- NOTE | 2016-12-22 13:41 | SOCIAL WORKER PROG NOTE PSYCH ---
Social Work Progress Note Progress Note Tony was sitting in the [facility]. He said he was doing okay, but continues to complain of being tired. It was around 11am and he had just woken up. I asked what time he normally gets up at home? He said 11am. I reminded him that IOP will be at 10am, so it would be good for him to start getting in a routine of getting up earlier and setting an alarm. Asked how his evening was? He said it was ok, but he didn't get much sleep. He said he tossed and turned alot and was probably just uncomfortable. I asked if he had any thoughts about the family meeting yesterday? He said no. He did say that his older sister was upset about him being here and that hurts him. He denied any depression today or suicidal thoughts. I informed him of his intake for Sunday at 12:45pm at [facility] and that his family can pick him up for 1:30pm. He said he would let them know when they visit today.
--- NOTE | 2016-12-22 14:09 | CP SOUTH PROGRESS NOTE PSYCH ---
Psych (Inpt) Progress Note Progress Note Progress Note: I discussed this patient's progress to date, current mental status, treatment process in the context of the treatment plan, and discharge planning with staff/ team in the daily morning inpatient team meeting. I also met with the patient myself in individual session. SUBJECTIVE: "I feel happy. I love walking around." OBJECTIVE: Current Medications Sig/Amina Start time Last Medication Dose Route Stop Time Status Admin Acetaminophen 650 MG Q4P PRN 12/18 184 AC PO Al Hydroxide/Mg 30 ML Q4-6 PRN PRN 12/18 184 AC Hydroxide PO Aripiprazole 5 MG AT BEDTIME 12/21 2200 AC / PO 2141 Magnesium Hydroxide 30 ML AT BEDTIME PRN 12/18 184 AC PO Nicotine 2 MG Q2 HRS NEEDED PRN 12/18 184 AC PO Sertraline HCl 50 MG AT BEDTIME 12/21 2200 AC / PO 2141 Vital Signs Date Time Temp Pulse Resp B/P Pulse O2 O2 Flow FiO2 Ox Delivery Rate 12/22 1209 74 126/63 12/22 0758 97.8 88 107/66 12/21 1939 99.3 74 134/76 12/21 1535 77 146/73 ASSESSMENT: Patient offers no complaints today, tolerating his medications well. Presents in a euthymic mood. States that changing his medication to bedtime dosing has been helpful, does not feel overly sedated during the day today. Reports some difficulty sleeping last night, states he believes that is because the bed is not very comfortable. Nevertheless, states that he got a decent night sleep. Patient has been participating in the community today, attending some groups this morning. Patient states that he has had the opportunity to speak with some of his peers on the unit. States that one patient told him a very moving story about his life. Patient was prompted to speak about some of his emotions, which he says he really hasn't spoken to anyone about before. States that as a child, in response to emotional turmoil in his family, he learned not to respond to his emotions. Depression:0/10; Anxiety:0/10 (with 10 the worst.) Denies suicidal ideation, homicidal ideation, auditory hallucinations, visual hallucinations, paranoid ideation. Speech is well articulated, goal-directed, average in rate, volume and tone. Calm, cooperative and pleasant. The patient understands the risks/benefits/side effects of the medication and is agreeable to continue taking them. PLAN: Continue with current management as patient is improving. Continue to provide support and encouragement.
[2016-12-22 16:17] VITALS: BP 146/74
[2016-12-22 19:52] VITALS: BP 134/74
--- NOTE | 2016-12-22 21:42 | NUR ---
PT IS CALM, COOPERATIVE WITH STAFF AND PEERS, AND COMPLIANT WITH UNIT RULES. PT IS OFTEN IN MILIEU, SLIGHTLY WITHDRAWN AT TIMES, BUT INTERACTING WELL WITH OTHERS. MOOD IS STABLE, AFFECTB IS EUTHYMCI TO FULL RNAGE, COMMUNICATION IS ORGANIZED AND APPEARS NORMAL IN ALL RESPECTS, AND APPETITE IS NORMAL. PT DENIES SI AT THIS TIME.
--- NOTE | 2016-12-23 06:41 | NUR ---
PATIENT SLEPT ALL NIGHT.
[2016-12-23 08:40] VITALS: BP 114/72
[2016-12-23 12:30] VITALS: BP 112/61
--- NOTE | 2016-12-23 13:25 | NUR ---
PT IS COMPLIANT AND COOPERATIVE. MOOD IS STABLE WITH A CONSTRICTED AFFECT. PT DENIES SI AT THIS TIME, PT C/O FEELING OVERLY TIRED- HAD DIFFICULTY SLEEPING D/T ROOMMATE BEING ON 1:1 OBSERVATION. PT HAS BEEN PRESENT ON THE UNIT AND INTERACTING WT PEERS AND STAFF. PT IS ATTENDING GROUPS. VITALS ARE STABLE, APPETITE IS GOOD.
[2016-12-23 15:52] VITALS: BP 141/73
--- NOTE | 2016-12-23 17:09 | CP SOUTH PROGRESS NOTE PSYCH ---
Psych (Inpt) Progress Note Progress Note Include the following elements, when applicable: Involvement in the active treatment of the patient with behavioral observations of the patient and the patient's response to the treatment. Review of the ongoing treatment process in the context of the treatment plan. Indication of how multi-disciplinary staff members are carrying out the treatment plan. Plans for future interventions and recommendations for revision of the treatment plan. Liaison with other physicians/providers. Progress Note: Chart reviewed, patient discussed with nursing staff. Interviewed patient this afternoon. Reports his mood is improving, denies any medication side effects denies suicidal or homicidal ideation. No other complaints today. Vital signs reviewed and within normal limits. No new laboratory results. Mental status exam: Well appearing man dressed casually with good grooming. Good eye contact. Speech was within normal limits. Mood was "getting better ", affect was euthymic, non-labile, congruent. Thought process was logical and linear thought content was within normal limits. He denies suicidal or homicidal ideation. He denies perceptual disturbance. Cognition was grossly intact. Insight and judgment was fair. A/P: Continue present management as per primary team.
[2016-12-23 20:16] VITALS: BP 144/72
--- NOTE | 2016-12-23 21:47 | NUR ---
PT IS CALM, COOPERATIVE WITH STAFF AND PEERS, AND COMPLIANT WITH UNIT RULES. PT IS OFTEN IN MILIEU AND INTERACTING WELL WITH OTHERS. MOOD IS STABLE, AFFECT APPEARS EUTHYMIC TO FULL RANGE, COMMUNICATION IS ORGANIZED AND APPEARS NORMLA IN ALL RESPECTS, AND APPETITE IS NORMAL. PT DENIES SI AT THSI TIME.
--- NOTE | 2016-12-24 05:14 | NUR ---
PT APPEARED TO SLEEP THRU THE NIGHT.
[2016-12-24 08:12] VITALS: BP 110/61
--- NOTE | 2016-12-24 10:35 | CP SOUTH PROGRESS NOTE PSYCH ---
Psych (Inpt) Progress Note Progress Note Include the following elements, when applicable: Involvement in the active treatment of the patient with behavioral observations of the patient and the patient's response to the treatment. Review of the ongoing treatment process in the context of the treatment plan. Indication of how multi-disciplinary staff members are carrying out the treatment plan. Plans for future interventions and recommendations for revision of the treatment plan. Liaison with other physicians/providers. Progress Note: Chart reviewed, patient discussed with nursing staff. Interviewed patient this am. Reports his mood continues to improve. Asks about the side effects of zoloft and abilify and was counseled on these. Denies any medication side effects denies suicidal or homicidal ideation. No other complaints today. Vital signs reviewed and within normal limits. No new laboratory results. Mental status exam: Well appearing man dressed casually with good grooming. Good eye contact. Speech was within normal limits. Mood was "ok", affect was euthymic, non-labile, congruent. Thought process was logical and linear thought content was within normal limits. He denies suicidal or homicidal ideation. He denies perceptual disturbance. Cognition was grossly intact. Insight and judgment was fair. A/P: Continue present management as per primary team.
--- NOTE | 2016-12-24 11:32 | NUR ---
PT IS CALM, COOPERATIVE, PLEASANT, SOCIAL AND APPROPRIATE WITH PEERS AND STAFF, HAS OFFERED NO ISSUES THUS FAR AND IS COMPLIANT WITH MEDICATIONS AND TREATMENTS, REPORTED IN GROUP TODAY + MOOD, SLEEP, APPETITE, FEELING MORE "COMFORTABLE" ON THE UNIT, MOOD STABLE WITH FULL RANGE AFFECT.
[2016-12-24 12:03] VITALS: BP 134/69
[2016-12-24 16:37] VITALS: BP 133/74
[2016-12-24 20:10] VITALS: BP 151/73
--- NOTE | 2016-12-24 22:46 | NUR ---
PT IS CALM, COOPERATIVE WITH STAFF AND PEERS, AND COMPLIANT WITH UNIT RULES. PT IS OFTEN IN [place], INTERACTING WELL WITH PEERS. MOOD IS STABLE, AFFECT IS EUTHYMIC TO FULL RANGE, COMMUNICATION IS ORGANIZED AND APPEARS NORMAL IN ALL RESPECTS, AND APPETITE IS NORMAL. PT DENIES SI AT THIS TIME.
--- NOTE | 2016-12-25 06:19 | NUR ---
PT APPEARED TO SLEEP WELL.
[2016-12-25 07:59] VITALS: BP 135/74
--- NOTE | 2016-12-25 10:23 | CP SOUTH PROGRESS NOTE PSYCH ---
Psych (Inpt) Progress Note Progress Note Include the following elements, when applicable: Involvement in the active treatment of the patient with behavioral observations of the patient and the patient's response to the treatment. Review of the ongoing treatment process in the context of the treatment plan. Indication of how multi-disciplinary staff members are carrying out the treatment plan. Plans for future interventions and recommendations for revision of the treatment plan. Liaison with other physicians/providers. Progress Note: [I discussed this patient's progress to date, current mental status, treatment process in the context of the treatment plan, and discharge planning with staff/ team in the daily morning inpatient team meeting. I also met with the patient myself in individual session.] S: "I feel a lot better." O: Current Medications Sig/Amina Start time Last Medication Dose Route Stop Time Status Admin Acetaminophen 650 MG Q4P PRN 12/18 1845 AC PO Al Hydroxide/Mg 30 ML Q4-6 PRN PRN 12/18 1845 AC Hydroxide PO Aripiprazole 5 MG AT BEDTIME 12/21 2200 AC 12/24 PO 2121 Diphenhydramine HCl 50 MG .STK-MED ONE 12/24 2117 DC PO 12/24 2118 Diphenhydramine HCl 50 MG AT BEDTIME PRN 12/23 1430 AC / PO 2123 Magnesium Hydroxide 30 ML AT BEDTIME PRN 12/18 1845 AC PO Nicotine 2 MG Q2 HRS NEEDED PRN 12/18 1845 AC PO Sertraline HCl 50 MG AT BEDTIME 12/21 2200 AC / PO 2121 Vital Signs Date Time Temp Pulse Resp B/P Pulse O2 O2 Flow FiO2 Ox Delivery Rate 12/25 0759 97.0 87 135/74 12/24 2009 99.4 90 151/73 12/24 1637 73 133/74 12/24 1203 78 134/69 A: Chart, progress notes, VS, labs and medication lists were reviewed. Vital signs were within normal limits. There were no new labs today. Today, I met with the patient for the first time on [facility] (covering for Sanchez Mcmanus APRN). Met with the patient today on the date of discharge. He was alert and oriented to person, place, time and situation. Affect was calm and constricted. Mood was "I feel a lot better." Eye contact was appropriate. Speech was normal in rate, tone and volume. He denied feeling hopeless, helpless, worthless and guilty. He denied auditory and visual hallucinations. Denied racing thoughts. Thought process was organized and goal-directed. There was no evidence of paranoia or allen delusions. Thought content was appropriate. Cognition was grossly intact. He reported anxiety of 1/10 (10 being the worst) and depression of 0/10 (10 being the worst). He reported protective factors of his family and job. He denied passive and active suicidal ideation, plans and intent. He denied homicidal ideation, plans and intent. He stated and also believed he will not harm himself or others. He reported his sleep and appetite were good. He appeared open to following up with [facility] level of care post-discharge, and appeared motivated to attend intake at 12:45PM, today. He also expressed motivation to resume his job at [employer]. The patient reported tolerating all medications well and denied untoward medication effects. He reported feeling safe and ready for discharge. P: 1. Discharge today into the care of family. 2. F/u with [facility] intake today at 12:45PM. 3. Patient was strongly advised to abstain from cannabis use. 4. All discharge medications were called into [facility] [place] today. 5. In the event of an emergency, call 911/ go to nearest emergency department. Patient verbalized understanding of instructions.
--- NOTE | 2016-12-25 10:40 | DISCHARGE SUMMARY REPORT-PSYCH ---
Visit Information Visit Dates/Diagnosis' Admission Date: 12/18/16 Discharge Date: 12/25/16 Reason for Admission: Patient was brought to emergency department by ambulance after his ex-fiance called 911 when patient sent her a video of him trying to hang himself. Psy Discharge Primary Diag: Unspecified Depressive Disorder Psy Discharge Secondary Diag: PTSD; R/O Unspecified Bipolar Disorder; Cannabis use disorder. Hospital Course Significant Lab Findings: Lab Urine Cannabis Screen 63.10 NG/ML H 12/18/16 1010 Course Complications: None. Consultations: The patient was seen for admission history and physical by structural metal fabricator apprentice Dr. Asim Nelson. Please see his note for additional information. Allergies: Coded Allergies: NO KNOWN ALLERGIES (12/18/16) Hospital Course/TX Response: The patient was monitored on the unit for safety, suicidal ideation and mood. He participated in multimodal treatments on the unit. He was started on Zoloft 50mg every morning for symptoms of depression and anxiety, which was later rescheduled to bedtime given reports of daytime tiredness. Abilify 5mg was further started at bedtime as an antidepressant adjunct and for mood stabilization. The patient reported tolerating all medications well and denied untoward medication effects. During the hospital course, the patient's mood and affect improved. Suicidal ideation remitted. A family meeting was held with the patient, his grandmother and grandfather, his two sisters, Lalita Myers CHAS, and Sanchez Mcmanus APRN. The patient's treatment progress, level of safety and discharge planning were reviewed and discussed. The patient's family was very supportive during this meeting and were in favor, as was the patient for him to engage in [facility] post- discharge for ongoing psychiatric treatment. On the date of discharge, 12/25/16, I met with the patient for the first time on [facility] (covering for Sanchez Mcmanus APRN). He was alert and oriented to person, place, time and situation. Affect was calm and constricted. Mood was "I feel a lot better." Eye contact was appropriate. Speech was normal in rate, tone and volume. He denied feeling hopeless, helpless, worthless and guilty. He denied auditory and visual hallucinations. Denied racing thoughts. Thought process was organized and goal-directed. There was no evidence of paranoia or allen delusions. Thought content was appropriate. Cognition was grossly intact. He reported anxiety of 1/10 (10 being the worst) and depression of 0/10 (10 being the worst). He reported protective factors of his family and job. He denied passive and active suicidal ideation, plans and intent. He denied homicidal ideation, plans and intent. He stated and also believed he will not harm himself or others. He reported his sleep and appetite were good. He appeared open to following up with [facility] level of care post-discharge, and appeared motivated to attend intake at 12:45PM, today. He also expressed motivation to resume his job at [employer]. The patient reported tolerating all medications well and denied untoward medication effects. He reported feeling safe and ready for discharge. Discharge HBIPS - Tobacco Use Treatment Offered Post DC Medications Offered: Refused Tob Medication Tx Post DC Tobacco Treatment Plan: [facility] Tobacco Tx Pgm Program Appt Date: 01/03/17 Program Appt Time: 1600 - EtOH/Drug Use D/O Treatment Offered Post DC Medications Offered: Med Not Indicated for D/O Post DC EtOH/SubAbuse TX Plan: [facility] SubAbuse/Dual IOP Program Appt Date: 12/25/16 Program Appt Time: 1245 Metabolic Screening - Screen if on a Neuroleptic Medication - Metabolic screening should include: - Blood Pressure, BMI, Glucose or Hgb A1c, & a - Lipid profile from within the past 365 days. Metabolic Screening () Not Applicable, patient not on a neuroleptic. OR ([X]) Patient on a neuroleptic(s) . Enter below results for Glucose or Hemoglobin A1C, and lipid panel if obtained during the last 365 days. BMI: 28.000 Blood Pressure: 140/72 Laboratory Results (If applicable): Lab Cholesterol 116 MG/DL 12/20/1618 Cholesterol/HDL Ratio 3 % 12/20/16617 Glucose 100 mg/dL H 12/17/162147 HDL Cholesterol 37 mg/dL L 12/20/16617 LDL Cholesterol, Calc 67 mg/dL 12/20/16617 Triglycerides 63 mg/dL 12/20/16617 Discharge Instructions General Discharge Information Discharge Medications: Discharge Medications- (Dose, route, freq, indication): START taking these NEW Home Medications: Sertraline HCl Dose: ORAL, AT BEDTIME for Qty: 14 Call-In to (Sertraline HCl) 50 50 Milligram depression/anxiety Refills: 0 Pharm 1 MG TABLET Take 1 tablet by mouth at bedtime. Aripiprazole Dose: ORAL, AT BEDTIME for Qty: 14 Call-In to (Abilify) 5 MG 5 Milligram mood stabilization Refills: 0 Pharm 1 TABLET Take 1 tablet by mouth at bedtime. 1: [facility]/pharmacy #[id number], [address] [facility], [place] [address] Your Preferred Pharmacy [facility]/pharmacy #[id number] [address] [place] [place] [address] Multiple Neuroleptics: ([X]) Not Applicable OR Document below three failed attempts at monotherapy, or a plan to taper to monotherapy, or augmentation of Clozapine. () Patient's Diet: Regular. Patient's Activity: No restrictions. DC Disposition: Patient to return home with grandparents. Recommendations: Patient was advised to please take his medications as prescribed. He was advised to abstain from cannabis. He was advised to follow up with outpatient referrals (see in below section). He was advised that in the event of an emergency to call 911/go to the nearest emergency department. The patient verbalized understanding of all instructions. Referred To: [facility] Intensive Outpatient Psychiatry Intake for 12/25/16, 12:45pm [address] [place] [address] [phone] [facility] [address] [place] [id number] [phone]) [phone] *Walk-in to group on 01/03/17 at 4PM. Copies To: [facility]; Smoking Cessation Program
--- NOTE | 2016-12-25 10:57 | SOCIAL WORKER PROG NOTE PSYCH ---
Social Work Progress Note Progress Note Patient fairly upbeat today and he is anxious for discharge. He is mentally prepared, he reports and he will be following up at [facility] and he will have an intake at 12:45 today following discharge from unit Patient reports that he has no S.I., and is ready to move forward. Patient will return to home. He lives with his grandmother in [place]. Patient has job at [employer], and he states that his job is secure at this point and that he will ease back into job. Patient discharge medications are Abilify 5 m.g. h.s. and Zoloft %0 m.g. h.. s. Patient reports that he has been comfortable with the medications and has no ill effects due to them. Patient is leaving in good spirits and discharge GAF= 45
[2016-12-25] MEDS ORDERED: ABILIFY5 M1 PO (11:35)
[2016-12-25] MEDS ORDERED: SERTRALINE HCL50 MG PO (11:35)
--- NOTE | 2016-12-25 11:37 | NUR ---
will be discharged today to [facility] with follow up at [facility]. Mood is stable euthymic affect. denied thoughts of self harm when asked. given education on suicide prevention and depression.
[2016-12-25 12:31] VITALS: BP 140/72
== END 2016-12-25 12:50 | DRG 754 ==
LOC: ERH 20:47 → ERHI 12-18 11:12 → ERH 12-18 11:12 → CANBEDREQ 12-18 12:16 → CP SOUTH 12-18 15:31 → ERHI 12-18 15:31 → EDPENDDISTM 12-18 15:31 → ENPENDDIS 12-18 15:31 → CP SOUTH 12-18 18:54
PROVIDERS: Nurse Practitioner Psychiatric/Mental Health; Pediatrics; ADMIT Psychiatry & Neurology Addiction Medicine
DX: F32.9 Major depressive disorder, single episode, unspecified (principal); F43.10 Post-traumatic stress disorder, unspecified; F12.90 Cannabis use, unspecified, uncomplicated
CPT/HCPCS: 36415; 80307; G0480; J3101